=== PATIENT | male | born 1960 | race Caucasian/White ===

== ENCOUNTER 2019-11-09 11:37 | Emergency (ER) | payer OTHER ==
[~2019-11-09] VITALS: Ht 190.5 cm; Wt 93.0 kg
[~2019-11-09 11:37] MED LIST: CLARITIN-D 241 EACH PO; FLOMAX0.4 MG PO; LEVAQUIN750 MG PO
[2019-11-09] MEDS ORDERED: HYDROCODON-ACE1 EA11 PO (11:57)
[2019-11-09] MEDS ORDERED: LISINOPRIL10 MG PO (11:57)
[2019-11-09] MEDS ORDERED: CEFPODOXIME PR200 MG PO (14:51)
[2019-11-09] MEDS ORDERED: ZITHROMAX250 MG PO (14:51)
== END 2019-11-09 15:38 | disposition home or self-care (01) ==
LOC: ED 11:37
DX: J18.9 Pneumonia, unspecified organism (principal)
CPT/HCPCS: 71046; 74176; 80053; 81001; 85025; 96361; 96374; 96375; 96376; 99284-25; J0696; J1170; J1885; J2405; J7030

== ENCOUNTER 2019-11-15 14:43 | Emergency (ER) | payer OTHER ==
[~2019-11-15] VITALS: Ht 190.5 cm; Wt 93.0 kg
[~2019-11-15 14:43] MED LIST changes: +CEFPODOXIME PR200 MG PO; +HYDROCODON-ACE1 EA11 PO; +LISINOPRIL10 MG PO; +ZITHROMAX250 MG PO
--- OUTSIDE RECORDS SUMMARY | 2019-11-15 14:46 | XMS ---
PreManage Notification: BENNY RUELAS Security Patient Services Technician Events No recent Security Events currently on file CRITERIA MET - [facility] - 2 Visits in 30 Days CARE PROVIDERS There are no care providers on record at this time. Stanley has no Care Guidelines for this patient. V[facility] V[facility] (12 MO.) [facility] 2 NOTE: Visits indicate total known visits. ED/UCC VISIT TRACKING (12 MO.) 11/15/2019 14:43 [facility] TYPE: Emergency COMPLAINT: - ABD PAIN, CONSTIPATION 11/09/2019 11:38 GUADALUPE Frias OR TYPE: Emergency COMPLAINT: - KIDNEY/BLADDER PAIN DIAGNOSES: - Pneumonia, unspecified organism - Pleurodynia INPATIENT VISIT TRACKING (12 MO.) No inpatient visits to display in this time frame [id number]
== END 2019-11-15 17:01 | disposition home or self-care (01) ==
LOC: ED 14:43
DX: J18.9 Pneumonia, unspecified organism (principal); K59.00 Constipation, unspecified; Z79.899 Other long term (current) drug therapy
CPT/HCPCS: 74022; 99284-25; A9270

== ENCOUNTER 2022-11-22 05:55 | Day surgery (SDC) | payer OTHER ==
[2022-11-13 11:34] VITALS: BP 14/84
[~2022-11-22] VITALS: Ht 190.5 cm; Wt 102.3 kg
[~2022-11-22 05:55] MED LIST changes: +COZAAR50 MG PO; +ZYRTEC10 MG PO
[2022-11-22] MEDS ORDERED: TURMERIC500 M3 PO (06:15)
[2022-11-22] MEDS ORDERED: ZINC30 MG PO (06:16)
[2022-11-22] MEDS ORDERED: VITAMIN D325 MC2 PO (06:16)
[2022-11-22] MEDS ORDERED: CINNAMON500 MG PO (06:17)
[2022-11-22] MEDS ORDERED: ZINC50 MG PO (06:17)
[2022-11-22 06:25] VITALS: BP 156/99
[2022-11-22] MEDS ORDERED: DOXYCYCLINE HY100 M3 PO (06:59)
[2022-11-22] MEDS ORDERED: MOTRIN IB200 MG PO (08:52)
[2022-11-22] MEDS ORDERED: TYLENOL EXTRA500 MG PO (08:52)
[2022-11-22] MEDS ORDERED: PERCOCET 7.5-31 EACH PO (08:52)
--- NOTE | 2022-11-22 08:55 | NUR ---
11/22/22 0855 Kayla Ruiz 0840- PT ARRIVES TO PACU NONAROUSABLE TO STIMULI WITH AN OPA IN PLACE. PT OBSTRUCTING SLIGHTLY WITH THE OPA IN PLACE. JAW THRUST COMPLETED. OBSTRUCTION CLEARED. RESP EVEN AND UNLABORED. OXYGEN SAT HIGH 90'S TO 100% ON 6L VIA MASK. 0847- PT REMAINS NONAROUSABLE TO STIMULI WITH AN OPA IN PLACE AND JAW THRUST BEING PERFORMED. RESP EVEN AND UNLABORED. OXYGEN SAT HIGH 90'S TO 100% ON 6L VIA MASK. 0851- PT SQUEEZES HIS EYELIDS TOGETHER WITH STIMULI. DOES NOT FOLLOW COMMANDS OR OPEN EYES. OPA LEFT IN PLACE. 0853- PT OPENING EYES TO STIMULI. PT PUSHING OUT OPA WITH HIS TONGUE. OPA REMOVED. OXYGEN MASK REPLACED AT 6L.
--- NOTE | 2022-11-22 09:20 | NUR ---
REPORT RECEIVED FROM CARLOS ONTIVEROS. THIS RN TRANSPORTS PT VIA STRETCHER TO DS ROOM FROM PACU. PT REPORTS PAIN 2/10 AT THIS TIME AND STATES DOES NOT NEED PRN PAIN MED. PT REPORTS NO NAUSEA, DIZZINESS, SOB, OR N/T AT THIS TIME. DRESSING ON UMBILICAL AREA IS C/D/I, NO SIGNS OF BLEEDING AT THIS TIME. PT IS DROWSY BUT A&O X4. VSS. SCD'S IN PLACE. IV SITE WNL. IS AT BEDSIDE. CRACKERS, APPLESAUCE, AND ICE WATER PROVIDED, PT TOLERATING WELL AT THIS TIME W/OUT DIFFICULTY SWALLOWING. CALL LIGHT WITHIN REACH, NO FURTHER NEEDS AT THIS TIME.
[2022-11-22 09:23] VITALS: BP 126/80
[2022-11-22 10:12] VITALS: BP 130/88
--- NOTE | 2022-11-22 10:15 | NUR ---
IN PT ROOM FOR STANDBY ASSIST TO RESTROOM. PT REPORTS NO DIZZINESS OR INSTABILITY WITH AMBULATION. VOIDS 150 ML CLEAR/YELLOW. PT NOW BACK IN BED RESTING. PT REQUESTS PRN PAIN MED PRIOR TO AMBULATION, CURRENT PAIN AT 2/10, PRN PERCOCET GIVEN. DRESSING POST AMBULATION HAS SMALL AMOUNT OF SS DRAINAGE. VS TAKEN, STABLE. PT IS A&O X4 WITH AT BEDSIDE. CALL LIGHT WITHIN REACH, NO FURTHER NEEDS AT THIS TIME.
--- NOTE | 2022-11-22 10:35 | NUR ---
PT REPORTS MINIMAL PAIN AT THIS TIME. DRESSING HAS SMALL AMOUNT OF SS DRAINAGE. PT REPORTS NO DIZZINESS, NAUSEA, N/T, SOB AT THIS TIME. PT GETTING DRESSED W/ ASSISTANCE.
--- NOTE | 2022-11-22 10:45 | NUR ---
DISCHARGE EDUCATION PROVIDED TO PT AND PT . PT AND STATE VERBAL UNDERSTANDING. IV DC'ED, WNL, CATHETER TIP INTACT, GAUZE/COBAN IN PLACE. ALL PERSONAL BELONGINGS IN PT POSSESSION. THIS RN ESCORTS PT OFF UNIT VIA WC TO PASSENGER 'S VEHICLE. PT AND PT STATE NO FURTHER QUESTIONS OR NEEDS AT THIS TIME.
--- NOTE | 2022-11-25 18:30 | OR ---
[facility] [address] [place], [place] [address] Signed DATE OF OPERATION: 11/22/2022 SURGEON: Luz Gaitan MD PREOPERATIVE DIAGNOSIS: Symptomatic umbilical hernia. POSTOPERATIVE DIAGNOSIS: Symptomatic umbilical hernia. PROCEDURES: 1. Repair of symptomatic umbilical hernia. 2. Implantation of Prolene mesh (underlay technique with fascial reapproximation). ANESTHESIA: General, LMA; Jacobo Siemens, COUNTER DISH CARRIER and Marcaine 0.25% with epinephrine 10 mL. INDICATION: This 62-year-old white man is a patient Dr. Piña and was referred for umbilical hernia as well as pilonidal changes of the cleft. Examination of the abdomen does show a reducible hernia with fascial defects approximately 3 cm in size. The hernia is reducible. He has no associated chronic cough or current urinary outlet obstructive symptoms or constipation. He is admitted at this time to undergo repair of the hernia. He understands the risk of bleeding, infection, and recurrence. Examination of the cleft did show some pilonidal pits, but no sign of active inflammation or abscess. FINDINGS: The fascial defect was approximately 2.5 to 3 cm in total. The fascial edges were reasonably sturdy. The peritoneal cavity was entered. There was no sign of ascites or carcinomatosis. The peritoneum was freed from the anterior abdominal wall, ultimately reapproximated and repair consisted of implantation of Prolene mesh in the properitoneal space with transverse reapproximation of the fascia. He tolerated the procedure well. DESCRIPTION OF PROCEDURE: The patient was brought to the operating room, given a general LMA type anesthetic. Preoperative antibiotic Ancef was given. Sequential compression device stockings were used and heparin subcutaneously administered. The abdomen was prepared with chlorhexidine solution and draped sterilely after clipping. A curvilinear incision was Electronically Signed By: LUZ GAITAN MD 11/25/22 1830 PATIENT NAME: BENNY RUELAS JR OPERATIVE REPORT DATE OF : 62 REPORT #: [id number] PHYSICIAN: LUZ GAITAN MD PCP: RAMÓN PIÑA MD REPORT IS CONFIDENTIAL AND NOT TO BE RELEASED WITHOUT AUTHORIZATION [facility] [address] [place] [id number] Signed made to the left of the umbilicus. Dissection was carried through the subcutaneous tissue and dermis sharply. The hernia was protruding through the abdominal wall, but did not contain viscous at that time. The dermis over the hernia sac was freed and the fascial edges dissected free. The hernia sac was opened and internal inspection showed no sign of ascites or carcinomatosis. Subcutaneous space was freed from the surrounding fascia. The peritoneum was then freed from the overlying fascia circumferentially and reapproximated with 2-0 Vicryl suture. A circular piece of mesh approximately 5 cm in diameter was secured in an underlay technique with interrupted 0 Prolene sutures. The fascia was then reapproximated transversely over the mesh with interrupted Prolene sutures in a horizontal mattress configuration. An additional running stitch of Prolene was placed as well. A 10 mL of 0.25% Marcaine with epinephrine was injected locally. Subcutaneous tissue was reapproximated with interrupted 2-0 Vicryl and the skin closed with running subcuticular 3-0 Vicryl. Steri-Strips were applied as was an Acticoat dressing. He tolerated the procedure well. Blood loss was minimal. MD DAYNA Le/BRYL /[id number] cc: Ramón Piña MD Copies: RAMÓN PIÑA MD ~ Electronically Signed By: LUZ GAITAN MD 11/25/22 1830 PATIENT NAME: SURAJBENNY OPERATIVE REPORT DATE OF : 62 REPORT #: [id number] PHYSICIAN: LUZ GAITAN MD PCP: RAMÓN PIÑA MD REPORT IS CONFIDENTIAL AND NOT TO BE RELEASED WITHOUT AUTHORIZATION
== END 2022-11-22 10:50 | disposition home or self-care (01) ==
LOC: DS 05:55
PROVIDERS: ATTEND Surgery
PROC: 0WUF0JZ Supplement Abdominal Wall with Synthetic Substitute, Open Approach (ICD-10-PCS; principal; 2022-11-22 07:30)
DX: K42.9 Umbilical hernia without obstruction or gangrene (principal)
CPT/HCPCS: C1781; J0690; J1100; J1644; J1885; J2001; J2250; J2405; J2704; J3010; J7121

== ENCOUNTER 2023-02-18 07:58 | Day surgery (SDC) | payer OTHER ==
[~2023-02-18] VITALS: Ht 190.5 cm; Wt 102.3 kg
--- NOTE | ~2023-02-18 | OR ---
[facility] [address] [place], [place] [address] Draft DATE OF OPERATION: 02/18/2023 SURGEON: Luz Gaitan MD PREOPERATIVE DIAGNOSIS: Recurrent pilonidal abscess and pilonidal disease. POSTOPERATIVE DIAGNOSIS: Recurrent pilonidal abscess and pilonidal disease. PROCEDURE: Pilonidal cystectomy. ANESTHESIA: Spinal with IV sedation, Luz Allan METZ and local 20 mL of 0.25% Marcaine with epinephrine. 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 He is a patient of Dr. Piña. He has noted recurrent infection in the intranatal cleft and found to have pilonidal disease. He has episodic soreness and no current activity of disease at this time. He is here for excision of the pilonidal disease planning for wound care following operation rather than primary closure most likely. He understands, as does his , the risk of bleeding, infection, recurrent disease and so forth and wished to proceed. FINDINGS: Two small sinuses were noted. Excision was intentionally made to be limited excising the pilonidal disease in the intranatal cleft down to the postsacral fascia. Complete excision was accomplished. The wound was packed with gauze. DESCRIPTION OF PROCEDURE: The patient was brought to the operating room and underwent a spinal anesthetic and placed in the prone jaret-knife position. Preoperative antibiotic, Ancef was given. The buttocks were taped apart, intranatal cleft clipped and prepared with a chlorhexidine solution. Probing of two distinct pilonidal sinuses was undertaken showing no sign of egress of purulent material. Elliptical incision was undertaken in intranatal cleft include the sinuses. Meticulous care was used to excise the tissue down to the postsacral fascia including any pilonidal disease remain. Electrocautery was used for hemostasis. A 20 mL of 0.25% Marcaine with epinephrine injected locally. The wound was PATIENT NAME: BENNY RUELAS JR OPERATIVE REPORT DATE OF : 62 REPORT #: [id number] PHYSICIAN: LUZ GAITAN MD PCP: RAMÓN PIÑA MD REPORT IS CONFIDENTIAL AND NOT TO BE RELEASED WITHOUT AUTHORIZATION [address] [address] Draft considered for primary closure, but deemed inadvisable and on that basis, the wound was packed with single ply of course gauze followed by application of folded gauze, and peripad was applied. The patient was ultimately returned to the supine position and taken to the recovery room in good condition, having suffered no complications. BLOOD LOSS: Minimal. MD DAYNA Le/MODL /[id number] cc: Ramón Piña MD Copies: RAMÓN PIÑA MD ~ PATIENT NAME: BENNY RUELAS OPERATIVE REPORT DATE OF : 62 REPORT #: [id number] PHYSICIAN: LUZ GAITAN MD PCP: RAMÓN PIÑA MD REPORT IS CONFIDENTIAL AND NOT TO BE RELEASED WITHOUT AUTHORIZATION
[~2023-02-18 07:58] MED LIST changes: +CINNAMON500 MG PO; +DOXYCYCLINE HY100 M3 PO; +MOTRIN IB200 MG PO; +PERCOCET 7.5-31 EACH PO; +PRAVASTATIN SOD10 MG PO; +TURMERIC500 M3 PO; +TYLENOL EXTRA500 MG PO; +VITAMIN D325 MC2 PO; +ZINC30 MG PO; +ZINC50 MG PO
[2023-02-18 08:17] VITALS: BP 126/76
--- NOTE | 2023-02-18 09:56 | NUR ---
02/18/23 0956 Neda Ivy PATIENT ARRIVED TO PACU WITH ORAL AIRWAY IN PLACE. PATIENT IS UNRESPONSIVE TO MY VOICE ON ARRIVAL. ORAL AIRWAY REMOVED AT 0952. PATIENT FOLLOWS DIRECTIONS TO OPEN HIS MOUTH.
[2023-02-18] MEDS ORDERED: IBUPROFEN600 MG PO (10:01)
[2023-02-18] MEDS ORDERED: OXYCODON-ACETA1 EAC2 PO (10:01)
[2023-02-18] MEDS ORDERED: ACETAMINOPHEN500 MG PO (10:02)
[2023-02-18 10:25] VITALS: BP 113/64
[2023-02-18 11:23] VITALS: BP 126/80
--- NOTE | 2023-02-18 13:25 | NUR ---
1028: PATIENT BACK IN DAY SURGERY ROOM FROM PACU. DENIES PAIN. DROWSY. IV SITE WNL. DRESSING IN BOTTOM WITH SMALL AMOUNT OF SEROSANGUINOUS DRAINAGE. DRESSING INTACT. VS CHECKED. SCDs ON. AT BEDSIDE. CALL LIGHT WITHIN REACH. ICE WATER PLACED AT BEDSIDE. 1105: DENIES PAIN. TOLERATING ICE WATER. PATIENT STATES NUMBNESS IN LEGS RESOLVING, BUT SOME NUMBNESS STILL THERE. 1120: VS CHECKED. IV SITE WNL. SPINAL STILL RESOLVING. CALL LIGHT WITHIN REACH. AT BEDSIDE. 1200: CHECKED PATIENT. PATIENT STATES HE FEELS LIKE SPINAL HAS RESOLVED AND WISHES TO TRY AND GET OOB. PATIENT ASSISTED OOB WITH 2 RNs STAND BY ASSIST. PATIENT STOOD AT BEDSIDE AND THEN TOOK STEPS IN ROOM. GAIT STEADY. PATIENT STATES LEGS FEEL STRONG. PATIENT GETTING DRESSED WITH HELP FROM . 1210: DISCHARGE INSTRUCTIONS GIVEN TO PATIENT AND . INSTRUCTED ON HOW TO DO DRESSING CHANGES. VERBALIZES UNDERSTANDING ON DRESSING CHANGES. IV DC'D WNL. TIP INTACT. DRESSING APPLIED. 1220: PATIENT DISCHARGED TO HOME VIA WHEELCHAIR WITH .
--- NOTE | 2023-02-21 18:01 | PATH ---
[facility] [address] [facility], [place] [address] Signed SPECIMEN(S): A PILONIDAL DISEASE SPECIMEN SOURCE: A. PILONIDAL DISEASE CLINICAL HISTORY: Pilonidal cyst FINAL PATHOLOGIC DIAGNOSIS: Pilonidal Disease: - Skin and underlying tissue with follicular cyst and associated chronic inflammation. - Negative for atypia or malignancy. NA:emh:C2NR MICROSCOPIC EXAMINATION: Histologic sections of all submitted blocks are examined by light microscopy. These findings, together with the gross examination, support the pathologic diagnosis. GROSS DESCRIPTION: The specimen, labeled and designated "Gildardo, pilonidal disease," is received in formalin and consists of an unoriented piece of yellow-rahman lobulated fatty tissue and pink to red-brown soft tissue (5.5 x 2.7 x 1.5 cm) with an attached white-rahman ellipse of skin (5.0 x 0.5 cm). The resection margin is inked blue, and the tissue is serially sectioned to reveal yellow-rahman fatty to white-rahman and red-brown fibrous and soft cut surfaces. A discrete cyst is not grossly identified. Clearing Inspector sections are submitted in cassette ([id number]). The remainder of the specimen is submitted in cassette ([id number]) at the request of Dr. Brown (02/20/2023 ) VB (under the direct supervision of a pathologist) The Gross Description was prepared using a voice recognition system. The report was reviewed for accuracy; however, sound-alike word errors, addition and/or deletions may occur. If there is any question about this report, please contact Client Services. PERFORMING LABORATORY: Technical component was performed by [employer], [address] [place] [id number] (CLIA# [id number]). PATIENT NAME: BENNY RUELAS PATHOLOGY DATE OF : 62 REPORT #: [id number] PHYSICIAN: SANDY PATHOLOGY PCP: ROBYN HERNDON MD REPORT IS CONFIDENTIAL AND NOT TO BE RELEASED WITHOUT AUTHORIZATION [address] [address] Signed Diagnostician: Noel Brown MD Pathologist Electronically Signed 02/21/2023 Copies: ~ PATIENT NAME: BENNY RUELAS SOWMYA PATHOLOGY DATE OF : 62 REPORT #: [id number] PHYSICIAN: SANDY PATHOLOGY PCP: ROBYN HERNDON MD REPORT IS CONFIDENTIAL AND NOT TO BE RELEASED WITHOUT AUTHORIZATION
== END 2023-02-18 12:21 | disposition home or self-care (01) ==
LOC: DS 07:58
PROVIDERS: ATTEND Surgery
PROC: 0HB8XZZ Excision of Buttock Skin, External Approach (ICD-10-PCS; principal; 2023-02-18 09:00)
DX: L05.01 Pilonidal cyst with abscess (principal)
CPT/HCPCS: 00300; J0690; J1100; J1644; J1885; J2001; J2250; J2405; J2704; J2765; J3010; J7121